=== PATIENT | female | born 1930 | race American Indian/Alaskan Native ===

== ENCOUNTER 2019-11-14 12:34 | Inpatient (IN) | payer MEDICARE, OTHER ==
--- NOTE | 2019-11-14 15:42 | Emergency Department Report ---
ED General Adult HPI - General Chief complaint: Seizure Stated complaint: SEIZURE Time Seen by Provider: 11/14/19 15:35 Source: EMS Mode of arrival: Stretcher Limitations: Altered Mental Status - History of Present Illness Initial comments: Patient is an 88-year-old female up since emergency room with complaints of seizure and vomiting. Patient had a seizure yesterday and vomited today. Patient has a history of dementia. Patient is currently alert and oriented times one. Patient denies any discomfort. Patient denies seizure. Patient denies nausea vomiting. Due to patient's past medical history of dementia patient is a poor historian. Per nursing report from her personal skilled nursing patient has seizure yesterday and vomited one time today. No blood in the vomitus. -: Sudden - Related Data Allergies Allergy/AdvReac Type Severity Reaction Status Date / Time Penicillins Allergy Unknown Verified 11/14/19 15:22 ED Review of Systems ROS: Stated complaint: SEIZURE Other details as noted in HPI Comment: Unobtainable due to pts medical conditions ED Past Medical Hx - Past Medical History Previous Medical History?: Yes Hx Hypertension: Yes Hx Seizures: Yes Hx Dementia: Yes - Social History Smoking Status: Unknown if ever smoked Substance Use Type: None ED Physical Exam - General Limitations: Altered Mental Status General appearance: alert, in no apparent distress - Head Head exam: Present: atraumatic, normocephalic - Eye Eye exam: Present: normal appearance - ENT ENT exam: Present: mucous membranes moist - Neck Neck exam: Present: normal inspection - Respiratory Respiratory exam: Present: normal lung sounds bilaterally. Absent: respiratory distress - Cardiovascular Cardiovascular Exam: Present: regular rate, normal rhythm. Absent: systolic murmur, diastolic murmur, rubs, gallop - GI/Abdominal GI/Abdominal exam: Present: soft, normal bowel sounds - Extremities Exam Extremities exam: Present: normal inspection - Back Exam Back exam: Present: normal inspection - Neurological Exam Neurological exam: Present: alert, altered, normal gait - Psychiatric Psychiatric exam: Present: normal affect, normal mood - Skin Skin exam: Present: warm, dry, intact, normal color. Absent: rash ED Course Vital Signs 11/14/19 11/14/19 15:07 19:40 Temperature 97.6 F 98.6 F Pulse Rate 76 78 Respiratory 18 18 Rate Blood Pressure 115/47 Blood Pressure 120/50 [Right] O2 Sat by Pulse 98 98 Oximetry - Reevaluation(s) Reevaluation #1: I discussed all results with patient. Discussed plan of care patient. Patient will be admitted to the hospitalist service. Patient agrees with plan of care. 11/14/19 17:25 - Consultations Consultation #1: Hospitalist consult for admission. Hospitalist admit patient. 11/14/19 17:26 ED Medical Decision Making - Lab Data Result diagrams: 11/14/19 15:53 11/14/19 15:53 - Radiology Data Radiology results: report reviewed CT BRAIN: 11/14/2019 INDICATION / CLINICAL INFORMATION: sz.. Confusion COMPARISON: None available. FINDINGS: BRAIN/INTRACRANIAL STRUCTURES: Unenhanced CT images of the brain demonstrate no evidence of acute intracranial abnormality. Ventricles and sulci are prominent in size, consistent with age-related atrophic change. Diffuse chronic white matter hypoattenuation is present throughout the cerebral hemispheric white matter, consistent with chronic small vessel ischemic change. There is no evidence of acute large vessel territory ischemic injury, hemorrhage, or mass. There are no abnormal extra-axial fluid collections. EXTRACRANIAL STRUCTURES: Unremarkable. IMPRESSION: No acute abnormality. Chronic and age-related changes. - Medical Decision Making Patient is an 88-year-old female up since emergency room with vomiting times one and subjected yesterday. Patient admitted to the hospitalist service for new onset seizure. Patient's head CT done and no acute findings. Patient's labs essentially unremarkable. - Differential Diagnosis new-onset seizure, seizure activity, nausea Critical care attestation.: If time is entered above; I have spent that time in minutes in the direct care of this critically ill patient, excluding procedure time. ED Disposition Clinical Impression: New onset seizure, Seizure-like activity, Seizure Nausea & vomiting Qualifiers: Vomiting type: unspecified Vomiting Intractability: non-intractable Qualified Code(s): R11.2 - Nausea with vomiting, unspecified Disposition: DC-09 OP ADMIT IP TO THIS HOSP Is pt being admited?: Yes Does the pt Need Aspirin: No Condition: Serious Time of Disposition: 17:27
[2019-11-14 16:19] LABS: Hematocrit 33.4 % (30.3-42.9); Hemoglobin 11.3 gm/dl (10.1-14.3); Mean Corpuscular HGB Conc 34 % (30-34); Mean Corpuscular Volume 90 fl (79-97); Platelet Count 258 K/mm3 (140-440); Red Cell Distribution Width 12.9 % (13.2-15.2)
[2019-11-14 16:40] LABS: Calcium 9.1 mg/dL (8.4-10.2)
--- NOTE | 2019-11-14 16:55 | Cat Scan Report ---
CT BRAIN: 11/14/2019 INDICATION / CLINICAL INFORMATION: sz.. Confusion COMPARISON: None available. FINDINGS: BRAIN/INTRACRANIAL STRUCTURES: Unenhanced CT images of the brain demonstrate no evidence of acute int racranial abnormality. Ventricles and sulci are prominent in size, consistent with age-related atrophic change. Diffuse chronic white matter hypoattenuation is present throughout the cerebral hemispheric white mat ter, consistent with chronic small vessel ischemic change. There is no evidence of acute large vessel territory ischemic injury, hemorrhage, or mass. There are no abnormal extra-axial fluid collections. EXTRACRANIAL STRUCTURES: Unremarkable. IMPRESSION: No acute abnormality. Chronic and age-related changes. All CT scans at this location are performed using dose reduction to ALARA by means of automated expos ure control. Signer Name: David Doyle MD Signed: 11/14/2019 4:50 PM Workstation Name: [id number]
--- NOTE | 2019-11-14 18:06 | History and Physical Report ---
History of Present Illness Chief complaint: She is confused History of present illness: 88 YO Female Personal [facility] Resident with HTN, Seizure Disorder, Dementia presents to ED for evaluation. Pt is confused and lethargic at time of my evaluation and in unable to provide detailed history. Pt history taken from EMS staff, ED staff, and [facility] staff. As per staff, the patient has experienced a witnessed seizure on yesterday, and has experienced persistent confusion over the past 24 hours and vomited today. EMS notified, and upon arrival the patient was found to be in distress and transported to [facility]. Pt seen and evaluated in ED and found to have Encephalopathy s/p witnessed seizure, as well as volume depletion. Pt placed in observation status and admitted to TREE unit for volume repletion and supportive care. NO further history obtainable. No prior admission for review. No medication listed at time of admission for reconciliation. Past History Past Medical History: other (see HPI) Past Surgical History: No surgical history, Other (reviewed) Social history: single. denies: smoking, alcohol abuse, IV drug use Family history: no significant family history (reviewed) Medications and Allergies Allergies Allergy/AdvReac Type Severity Reaction Status Date / Time Penicillins Allergy Unknown Verified 11/14/19 15:22 Review of Systems ROS unobtainable: due to mental status Exam - Constitutional Vitals: Temp Pulse Resp BP Pulse Ox 97.6 F 76 18 115/47 98 11/14/19 15:07 11/14/19 15:07 11/14/19 15:07 11/14/19 15:07 11/14/19 15:07 General appearance: Present: mild distress - EENT Eyes: Present: PERRL ENT: hearing intact, clear oral mucosa - Neck Neck: Present: supple, normal ROM - Respiratory Respiratory effort: normal Respiratory: bilateral: CTA - Cardiovascular Heart Sounds: Present: S1 & S2. Absent: rub, click - Extremities Extremities: pulses symmetrical, No edema Peripheral Pulses: within normal limits - Abdominal General gastrointestinal: Present: soft, non-tender, non-distended, normal bowel sounds Female genitourinary: Present: normal - Integumentary Integumentary: Present: dry, clammy, decreased turgor - Musculoskeletal Musculoskeletal: generalized weakness - Psychiatric Psychiatric: no appropriate mood/affect, no intact judgment & insight, no memory intact - Neurologic Neurologic: CNII-XII intact, no focal deficits, moves all extremities, no gait normal Results - Labs CBC & Chem 7: 11/14/19 15:53 11/14/19 15:53 Labs: Abnormal lab results 11/14/19 11/14/19 Range/Units 15:53 15:53 RDW 12.9 L (13.2-15.2) % Carbon Dioxide 20 L (22-30) mmol/L BUN 25 H (7-17) mg/dL Glucose 121 H (65-100) mg/dL Assessment and Plan - Patient Problems (1) Encephalopathy Current Visit: Yes Status: Acute Plan to address problem: CT Head, Neuro check, seizure precautions, aspiration precautions, (2) Seizure Current Visit: Yes Status: Acute Plan to address problem: EEG, neuro check, seizure precautions, ativan prn for seizure (3) HTN (hypertension) Current Visit: Yes Status: Acute Qualifiers: Hypertension type: essential hypertension Qualified Code(s): I10 - Essential (primary) hypertension Plan to address problem: monitor bp q shift, continue medical management. (4) Dementia Current Visit: Yes Status: Acute Qualifiers: Dementia behavioral disturbance: without behavioral disturbance Plan to address problem: supportive care, continue medical management. (5) DVT prophylaxis Current Visit: Yes Status: Acute Plan to address problem: SCD to ble while in bed,
[2019-11-14] MEDS ORDERED: ONDANSETRON 4 MG/2 ML INJ IV PRN (18:07)
[2019-11-14] MEDS ORDERED: LORazepam 2 MG/ML VIAL IV NR (21:00)
[2019-11-14] MEDS: ACETAMINOPHEN 325 MG TAB PO PRN (22:45)
[2019-11-14] MEDS: SODIUM CHLORIDE 0.45% 1000 ML 1,000 ML IV SCH (22:46)
--- NOTE | 2019-11-15 09:44 | Progress Note ---
Assessment and Plan Assessment and plan: Encephalopathy CT Head negative, continue Neuro checks, seizure precautions, aspiration precautions, Seizure Follow-up EEG, neuro check, seizure precautions, ativan prn for seizure. Consult neurology. HTN (hypertension) monitor bp q shift, continue medical management. Dementia supportive care, continue medical management. DVT prophylaxis SCD to ble while in bed, History Interval history: Patient is confused. However, in no apparent distress. Hospitalist Physical - Constitutional Vitals: Temp Pulse Resp BP Pulse Ox 98.3 F 74 19 148/90 93 11/15/19 07:31 11/15/19 07:31 11/15/19 07:31 11/15/19 07:31 11/15/19 07:31 General appearance: Present: no acute distress - EENT Eyes: Present: PERRL, EOM intact ENT: hearing intact, clear oral mucosa, dentition normal - Neck Neck: Present: supple, normal ROM - Respiratory Respiratory effort: normal Respiratory: bilateral: CTA - Cardiovascular Rhythm: regular Heart Sounds: Present: S1 & S2. Absent: gallop, rub - Extremities Extremities: no ischemia, No edema, Full ROM - Abdominal General gastrointestinal: soft, non-tender, non-distended, normal bowel sounds - Integumentary Integumentary: Present: clear, warm, dry - Neurologic Neurologic: CNII-XII intact, moves all extremities Results - Labs CBC & Chem 7: 11/14/19 15:53 11/14/19 15:53 Labs: Laboratory Last Values WBC 5.4 K/mm3 (4.5-11.0) 11/14/19 15:53 RBC 3.70 M/mm3 (3.65-5.03) 11/14/19 15:53 Hgb 11.3 gm/dl (10.1-14.3) 11/14/19 15:53 Hct 33.4 % (30.3-42.9) 11/14/19 15:53 MCV 90 fl (79-97) 11/14/19 15:53 MCH 31 pg (28-32) 11/14/19 15:53 MCHC 34 % (30-34) 11/14/19 15:53 RDW 12.9 % (13.2-15.2) L 11/14/19 15:53 Plt Count 258 K/mm3 (140-440) 11/14/19 15:53 Sodium 142 mmol/L (137-145) 11/14/19 15:53 Potassium 3.6 mmol/L (3.6-5.0) 11/14/19 15:53 Chloride 105.4 mmol/L (98-107) 11/14/19 15:53 Carbon Dioxide 20 mmol/L (22-30) L 11/14/19 15:53 Anion Gap 20 mmol/L 11/14/19 15:53 BUN 25 mg/dL (7-17) H 11/14/19 15:53 Creatinine 1.1 mg/dL (0.7-1.2) 11/14/19 15:53 Estimated GFR 47 ml/min 11/14/19 15:53 BUN/Creatinine Ratio 23 % 11/14/19 15:53 Glucose 121 mg/dL (65-100) H 11/14/19 15:53 Calcium 9.1 mg/dL (8.4-10.2) 11/14/19 15:53 Active Medications - Current Medications Current Medications: Generic Name Dose Route Start Last Admin Trade Name Rogelioq PRN Reason Stop Dose Admin Acetaminophen 650 mg 11/14/19 18:07 11/14/19 22:45 Tylenol PO 650 mg Q4H PRN Administration Pain MILD(1-3)/Fever >100.5/MENDOZA Sodium Chloride 1,000 mls @ 42 mls/hr 11/14/19 19:00 11/14/19 22:46 Nacl 0.45% 1000 Ml IV 42 mls/hr DIRECT NIKOLE Administration Ondansetron HCl 4 mg 11/14/19 18:07 Zofran IV Q8H PRN Nausea And Vomiting Sodium Chloride 10 ml 11/14/19 22:00 11/14/19 22:47 Sodium Chloride Flush Syringe 10 Ml IV 10 ml BID NIKOLE Administration Sodium Chloride 10 ml 11/14/19 18:07 Sodium Chloride Flush Syringe 10 Ml IV PRN PRN LINE FLUSH
--- NOTE | 2019-11-15 09:46 | Progress Note ---
Assessment and Plan Assessment and plan: Encephalopathy CT Head negative, continue Neuro checks, seizure precautions, aspiration precautions, Seizure Follow-up EEG, neuro check, seizure precautions, ativan prn for seizure HTN (hypertension) monitor bp q shift, continue medical management. Dementia supportive care, continue medical management. DVT prophylaxis SCD to ble while in bed, History Interval history: No new issues overnight. Hospitalist Physical - Constitutional Vitals: Temp Pulse Resp BP Pulse Ox 98.3 F 74 19 148/90 93 11/15/19 07:31 11/15/19 07:31 11/15/19 07:31 11/15/19 07:31 11/15/19 07:31 General appearance: Present: mild distress - EENT Eyes: Present: PERRL, EOM intact ENT: hearing intact, clear oral mucosa, dentition normal - Neck Neck: Present: supple, normal ROM - Respiratory Respiratory effort: normal Respiratory: bilateral: CTA - Cardiovascular Rhythm: regular Heart Sounds: Present: S1 & S2. Absent: gallop, rub - Extremities Extremities: no ischemia, No edema, Full ROM - Abdominal General gastrointestinal: soft, non-tender, non-distended, normal bowel sounds - Integumentary Integumentary: Present: clear, warm, dry - Neurologic Neurologic: CNII-XII intact, moves all extremities Results - Labs CBC & Chem 7: 11/14/19 15:53 11/14/19 15:53 Labs: Laboratory Last Values WBC 5.4 K/mm3 (4.5-11.0) 11/14/19 15:53 RBC 3.70 M/mm3 (3.65-5.03) 11/14/19 15:53 Hgb 11.3 gm/dl (10.1-14.3) 11/14/19 15:53 Hct 33.4 % (30.3-42.9) 11/14/19 15:53 MCV 90 fl (79-97) 11/14/19 15:53 MCH 31 pg (28-32) 11/14/19 15:53 MCHC 34 % (30-34) 11/14/19 15:53 RDW 12.9 % (13.2-15.2) L 11/14/19 15:53 Plt Count 258 K/mm3 (140-440) 11/14/19 15:53 Sodium 142 mmol/L (137-145) 11/14/19 15:53 Potassium 3.6 mmol/L (3.6-5.0) 11/14/19 15:53 Chloride 105.4 mmol/L (98-107) 11/14/19 15:53 Carbon Dioxide 20 mmol/L (22-30) L 11/14/19 15:53 Anion Gap 20 mmol/L 11/14/19 15:53 BUN 25 mg/dL (7-17) H 11/14/19 15:53 Creatinine 1.1 mg/dL (0.7-1.2) 11/14/19 15:53 Estimated GFR 47 ml/min 11/14/19 15:53 BUN/Creatinine Ratio 23 % 11/14/19 15:53 Glucose 121 mg/dL (65-100) H 11/14/19 15:53 Calcium 9.1 mg/dL (8.4-10.2) 11/14/19 15:53 Active Medications - Current Medications Current Medications: Generic Name Dose Route Start Last Admin Trade Name Rogelioq PRN Reason Stop Dose Admin Acetaminophen 650 mg 11/14/19 18:07 11/14/19 22:45 Tylenol PO 650 mg Q4H PRN Administration Pain MILD(1-3)/Fever >100.5/MENDOZA Sodium Chloride 1,000 mls @ 42 mls/hr 11/14/19 19:00 11/14/19 22:46 Nacl 0.45% 1000 Ml IV 42 mls/hr DIRECT NIKOLE Administration Ondansetron HCl 4 mg 11/14/19 18:07 Zofran IV Q8H PRN Nausea And Vomiting Sodium Chloride 10 ml 11/14/19 22:00 11/14/19 22:47 Sodium Chloride Flush Syringe 10 Ml IV 10 ml BID NIKOLE Administration Sodium Chloride 10 ml 11/14/19 18:07 Sodium Chloride Flush Syringe 10 Ml IV PRN PRN LINE FLUSH
[2019-11-15] MEDS: ACETAMINOPHEN 325 MG TAB PO PRN (21:09)
[2019-11-16] MEDS: SODIUM CHLORIDE 0.45% 1000 ML 1,000 ML IV SCH (04:06)
[2019-11-16 10:26] LABS: Basophils % (Auto) 0.5 % (0.0-1.8); Eosinophils # (Auto) 0.2 K/mm3 (0.0-0.4); Eosinophils % (Auto) 3.5 % (0.0-4.3); Hematocrit 31.4 % (30.3-42.9); Hemoglobin 10.6 gm/dl (10.1-14.3); Lymphocytes # (Auto) 1.4 K/mm3 (1.2-5.4); Lymphocytes % (Auto) 28.7 % (13.4-35.0); Mean Corpuscular HGB Conc 34 % (30-34); Mean Corpuscular Volume 91 fl (79-97); Monocytes # (Auto) 0.3 K/mm3 (0.0-0.8); Monocytes % (Auto) 6.8 % (0.0-7.3); Platelet Count 241 K/mm3 (140-440); Red Blood Count 3.46 M/mm3 (3.65-5.03)
[2019-11-16 10:49] LABS: BUN/Creatinine Ratio 17; Blood Urea Nitrogen 15 mg/dL (7-17); Calcium 8.8 mg/dL (8.4-10.2); Hemolysis Index 17
[2019-11-16 13:42] VITALS: BP 145/67
--- NOTE | 2019-11-16 16:27 | Discharge Summary ---
Providers - Providers Date of Admission: 11/16/19 10:05 Attending physician: REYNALDO RAMIREZ 11/16/19 14:45 Physical Therapy Evaluation and Treat [CONS] Routine Comment: Reason For Exam: Weakness Hospitalization Condition: Serious Exam - Constitutional Vitals: Temp Pulse Resp BP Pulse Ox 98.9 F 70 18 145/67 96 11/16/19 12:17 11/16/19 12:17 11/16/19 12:17 11/16/19 12:17 11/16/19 12:17 Plan Follow up with: ADDY HALEY [Other] - 7 Days
[2019-11-16] MEDS ORDERED: POTASSIUM CHLORIDE ER 20 MEQ TAB PO ONE (16:33)
--- NOTE | 2019-11-16 16:34 | Discharge Summary ---
Providers - Providers Date of Admission: 11/16/19 10:05 Date of discharge: 11/16/19 Attending physician: REYNALDO RAMIREZ 11/16/19 14:45 Physical Therapy Evaluation and Treat [CONS] Routine Comment: Reason For Exam: Weakness Hospitalization Condition: Serious Hospital course: 88 YO Female Personal [facility] Resident with HTN, Seizure Disorder, Dementia presents to ED for evaluation. Pt is confused and lethargic at time of my evaluation and in unable to provide detailed history. Pt history taken from EMS staff, ED staff, and [facility] staff. As per staff, the patient has experienced a witnessed seizure on yesterday, and has experienced persistent confusion over the past 24 hours and vomited today. EMS notified, and upon arrival the patient was found to be in distress and transported to [facility]. Pt seen and evaluated in ED and found to have Encephalopathy s/p witnessed seizure, as well as volume depletion. Pt placed in observation status and admitted to TREE unit for volume repletion and supportive care. NO further history obtainable. No prior admission for review. (1) Encephalopathy Current Visit: Yes Status: Acute Plan to address problem: Resolved (2) Seizure Current Visit: Yes Status: Acute Plan to address problem: Cont AED's (3) HTN (hypertension) Current Visit: Yes Status: Acute Qualifiers: Hypertension type: essential hypertension Qualified Code(s): I10 - Essential (primary) hypertension Plan to address problem: Controlled (4) Dementia Current Visit: Yes Status: Acute Qualifiers: Dementia behavioral disturbance: without behavioral disturbance Plan to address problem: Alert and oriented Not confused (5) Hypokalemia K3.1 Supplemented ' Disposition: DC-01 TO HOME OR SELFCARE Core Measure Documentation - Palliative Care Palliative Care/ Comfort Measures: Not Applicable - Core Measures Any of the following diagnoses?: none Exam - Constitutional Vitals: Temp Pulse Resp BP Pulse Ox 98.9 F 70 18 145/67 96 11/16/19 12:17 11/16/19 12:17 11/16/19 12:17 11/16/19 12:17 11/16/19 12:17 General appearance: Present: no acute distress, well-nourished - EENT Eyes: Present: PERRL ENT: hearing intact, clear oral mucosa - Neck Neck: Present: supple, normal ROM - Respiratory Respiratory effort: normal Respiratory: bilateral: CTA - Cardiovascular Heart rate: 78 Rhythm: regular Heart Sounds: Present: S1 & S2. Absent: rub, click - Extremities Extremities: no ischemia, pulses intact, pulses symmetrical, No edema Peripheral Pulses: within normal limits - Abdominal General gastrointestinal: Present: soft, non-tender, non-distended, normal bowel sounds Female genitourinary: Present: normal - Rectal Rectal Exam: deferred - Integumentary Integumentary: Present: clear, warm, dry - Musculoskeletal Musculoskeletal: gait normal, strength equal bilaterally - Psychiatric Psychiatric: appropriate mood/affect, intact judgment & insight - Neurologic Neurologic: CNII-XII intact, moves all extremities - Allied Health Allied health notes reviewed: nursing, case management Plan Activity: no restrictions Diet: regular Follow up with: ADDY HALEY [Other] - 7 Days
== END 2019-11-16 19:45 | disposition home or self-care (01) | DRG 101 ==
LOC: ED 12:34 → 2B-ACE 18:07 → OBSVTOIN 11-16 10:05
PROVIDERS: ADMIT Internal Medicine; ATTEND Internal Medicine
DX: G40.909 Epilepsy, unspecified, not intractable, without status epilepticus (principal); G93.40 Encephalopathy, unspecified; I10 Essential (primary) hypertension; F03.90 Unspecified dementia, unspecified severity, without behavioral disturbance, psychotic disturbance, mood disturbance, and anxiety; E87.6 Hypokalemia; Z88.0 Allergy status to penicillin
CPT/HCPCS: 36415; 70450; 80048; 85025; 85027; G0378; J7030